=== PATIENT | male | born 1945 | race Caucasian/White ===

== ENCOUNTER 2018-12-23 08:44 | Inpatient (IN) ==
--- NOTE | 2018-12-23 09:25 | Diag Imaging Result Doc PS360 ---
CHEST-1 VIEW - 12/23/2018 INDICATION: fall COMPARISON: None FINDINGS: Lung volumes are moderately low. The lungs are clear. Heart size is normal. No pneumothorax or pleural effusion. IMPRESSION: No acute disease. Electronically signed by Doug Kauffman 12/23/2018 9:23 AM
[2018-12-23 09:33] LABS: BASO# 0.03 X1000 (0.0-0.2); BASO% 0.3 % (0.0-0.8); EOS# 0.14 X1000 (0.0-0.7); EOS% 1.4 % (0.0-10.0); HEMATOCRIT 29.7 % (42.0-52.0); HEMOGLOBIN 10.4 g/dL (14.0-18.0); IMM GRAN# 0.02 X1000 (0.0-0.04); IMM GRAN% 0.2 % (0.0-0.5); LYMPH# 1.32 X1000 (1.2-3.4); LYMPH% 13.5 % (20.5-51.1); MCH 30.7 PG (27-31); MCV 87.6 FL (81-99); MONO# 1.27 X1000 (0.11-0.59); MONO% 12.9 % (1.7-9.3); MPV 9.8 FL (7.4-10.4); NEUT# 7.03 X1000 (1.4-6.5); NEUT% 71.7 % (42.2-75.2); PLT 145 X1000 (130-400); RBC 3.39 XMIL (4.7-6.1); RDW 14.9 % (11.5-14.5); WBC 9.81 X1000 (4.8-10.8)
--- NOTE | 2018-12-23 09:34 | PROVIDER DOCUMENTATION ---
HPI-General Adult - General Chief Complaint: Weakness Stated Complaint: ams Time Seen by Provider: 12/23/18 08:59 Source: patient Allergies/Adverse Reactions: Patient Allergies Allergy/AdvReac Type Severity Reaction Status Date / Time salmon oil Allergy ANAPHYLAXIS Verified 12/23/18 10:14 Home Medications: Home Medication List Medication Instructions Recorded Confirmed Last Taken Type Alprazolam 1 mg PO BID 12/23/18 12/23/18 Unknown History Amlodipine Besylate 10 mg PO DAILY 12/23/18 12/23/18 Unknown History Cholecalciferol (Vit D3) [Vitamin 1,000 unit PO DAILY 12/23/18 12/23/18 Unknown History D] Citalopram Hydrobromide 40 mg PO DAILY 12/23/18 12/23/18 Unknown History [Citalopram HBr] Dicyclomine HCl 10 mg PO DAILY 12/23/18 12/23/18 Unknown History Hydroxyzine Pamoate 50 mg PO DAILY 12/23/18 12/23/18 Unknown History Montelukast [Singulair] 10 mg PO DAILY 12/23/18 12/23/18 Unknown History Omeprazole 40 mg PO DAILY 12/23/18 12/23/18 Unknown History - History of Present Illness -Gen Adult Nature of Presenting Problems: 73 y/o WM brought to the ER for severe weakness and fall yesterday. His relates that his weakness started yesterday and he has fallen once yesterday and once at 1 am today. Pt c/o B knee pain and rt hip tenderness. states that pt started having speech difficulty yesterday. Pt denies any specific localized weakness and his comments that he was recently was treated for UTI that may not have resolved. Location of Pain/Injury: reports: lower extremity (Rt hip and B knee tenderness) Pain Radiation: reports: no radiation Quality of Pain: reports: aching Severity: reports: mild Onset/Duration: reports: 24 hours ago Timing: reports: still present Context/Activities at Onset: reports: light activity Modifying Factors: improves with: movement Associated Symptoms: reports: weakness, trouble walking. denies: back/neck pain, chest pain, seizure, shortness of breath Similar Symptoms Previously?: No Recently seen or treated by another doctor?: No - Sickle Cell Pain Related Context Sickle Cell Pain Location: denies: none, head, face, mouth, neck, chest, upper extremity, hand(s), abdomen, back, pelvis, genitalia, lower extremity, feet, upper body, lower body, generalized, other Review of Systems - Adult - REVIEW OF SYSTEMS - ADULT Constitutional: reports: see HPI, other (generalized weakness) Eyes: reports: no symptoms reported, see HPI Ears, Nose, Mouth & Throat: reports: see HPI, other (difficulty with speech and not drinking well) Cardiovascular: reports: no symptoms reported, see HPI Respiratory: reports: no symptoms reported, see HPI Gastrointestinal: reports: see HPI, abdominal pain (rt sided abdo pain) Genitourinary: reports: no symptoms reported, see HPI Musculoskeletal: reports: see HPI, joint pain (Rt hip pain and B knee pain) Integumentary: reports: no symptoms reported, see HPI Neurological: reports: no symptoms reported, see HPI Psychiatric: reports: no symptoms reported, see HPI Endocrine: reports: no symptoms reported, see HPI Hematologic/Lymphatic: reports: no symptoms reported, see HPI Allergic/Immunologic: reports: no symptoms reported, see HPI All Other Systems: Reviewed and Negative Past History - Adult - PAST MEDICAL HISTORY-ADULT Review of Records: reports: Nursing Assessment Review, Medications Reviewed, Social history reviewed & non-contributory. Physical Exam-General - PHYSICAL EXAM-ADULT Initial Vital Signs Reviewed: Yes - CONSTITUTIONAL General Appearance: no apparent distress, slow to respond - EYES Eyes: PERRL/EOMI - HEAD, EARS, NOSE, MOUTH & THROAT HENMT: normocephalic/atraumatic, other (Dry MM) - NECK Neck: non-tender, full range of motion, supple, normal inspection - RESPIRATORY Respiratory: chest non-tender, lungs clear, normal breath sounds, no pleuratic chest pain, no respiratory distress, no accessory muscle use - CARDIOVASCULAR Cardiovascular: normal peripheral pulses, regular rate, rhythm, no edema, no gallop, no JVD, no murmur - GASTROINTESTINAL (ABDOMEN) Abdominal Exam: normal bowel sounds, soft, no organomegaly, no pulsatile mass, guarding, tenderness - LYMPHATIC Lymphatic: no adenopathy - MUSCULOSKELETAL Back Exam: normal inspection, no CVA tenderness, no vertebral tenderness Extremity: no pedal edema, no calf tenderness, normal capillary refill, tenderne ss (rt hip tenderness and B knee tenderness that is greater on Lt side. N/V appears intact. generalized leg weakness B.) Peripheral Pulses: radial (R): 4+, radial (L): 4+, dorsalis-pedis (R): 4+, dorsalis-pedis (L): 4+ - SKIN Integumentary: normal color, normal turgor - NEUROLOGIC Neurologic: tag stringer II-XII nml as tested, grossly normal, motor weakness (generalized to B legs) - PSYCHIATRIC Psych/Mental Status: normal mood/affect, normal thought content, normal thought process Progress - PLAN OF CARE/RESULTS Progress/Plan/Lab Results: Vital Signs - 8 hr 12/23/18 08:51 Temperature 98.3 F Pulse Rate 93 H Respiratory Rate 18 Blood Pressure 119/65 O2 Sat by Pulse Oximetry 99 Orders Category Date Time Status Nursing- Obtain EKG ONCE Care 12/23/18 08:57 Active CHEST-1 VIEW [RAD] Stat Exams 12/23/18 08:[address] ABD/PELVIS W/IV CONT ONLY [CT] Stat Exams 12/23/18 09:[address] HEAD/C-SPINE W/O CONTRAST [CT] Stat Exams 12/23/18 08:57 Ordered KNEE 3 VIEWS LEFT [RAD] Stat Exams 12/23/18 09:26 Ordered KNEE 3 VIEWS RIGHT [RAD] Stat Exams 12/23/18 09:26 Ordered CBC WITH DIFF [HEME] Stat Lab 12/23/18 09:15 Results COMPREHENSIVE METABOLIC PANEL [CHEM] Stat Lab 12/23/18 09:15 Received UA NIMS W/REFLEX CULT [URINALYSIS] Stat Lab 12/23/18 08:57 Uncollected URINE DRUG SCREEN Stat Lab 12/23/18 08:57 Uncollected EKG [EKG] Stat Ther 12/23/18 08:57 Ordered Result Diagrams: 12/23/18 09:15 12/23/18 09:15 - CONSULTS/PCP/HOSPITALIST Notification #1 *Consult/PCP/Hospitalist*: [place] [employer] for Hospitalist Time Discussed: 12:23 Consult Disposition: Will see in ED, Admit Departure - Departure Date of Disposition Decision: 12/23/18 Time of Disposition Decision: 12:23 DIAGNOSIS: ARF (acute renal failure), Weakness, UTI (urinary tract infection), Anemia, Hyponatremia Disposition: ADMITTED INPATIENT 09 Certified Medical Emergency: Emergent Condition: Fair Referrals and Follow-Ups: Francoise Silverio, NOEMI [Primary Care Provider] - - Critical Care Note This patient required my direct & personal management of CC.: No Attestation - Physician/ PARISH Attestation Patient care was provided by Advanced Practice Provider:: No The physician spent face to face time with patient:: Yes Advanced Practice Provider documentation review:: Supervising physician onsite and consulted in the evaluation and care of this patient. The physician did have a face to face encounter with the patient.
[2018-12-23 09:50] LABS: ALBUMIN 3.6 g/dL (3.5-5.0); CALCIUM 9.6 mg/dL (8.8-10.2); CREATININE 5.4 mg/dL (0.7-1.2); POTASSIUM 4.7 mmol/L (3.5-5.1); TOTAL BILIRUBIN 0.24 mg/dL (0.20-1.00); TOTAL PROTEIN 7.1 g/dL (6.3-8.3)
[2018-12-23 09:58] LABS: URINE SOURCE CLEAN CATCH
[2018-12-23 10:05] LABS: BILIRUBIN URINE NEGATIVE (NEGATIVE); BLOOD URINE MODERATE (NEGATIVE); COLOR YELLOW; GLUCOSE URINE NEGATIVE (NEGATIVE); KETONE URINE TRACE mg/dL (NEGATIVE); LEUKOCYTES URINE LARGE (NEGATIVE); NITRITE URINE NEGATIVE (NEGATIVE); PH URINE 6.5; PROTEIN URINE 70 mg/dL (NEGATIVE); SP GRAVITY URINE 1.011; TURBIDITY URINE HAZY (CLEAR); UROBILINOGEN URINE NORMAL (NORMAL)
--- NOTE | 2018-12-23 10:05 | Diag Imaging Result Doc PS360 ---
CT HEAD/C-SPINE W/O CONTRAST - 12/23/2018 INDICATION: fall COMPARISON: None FINDINGS: Head CT: There is advanced diffuse cerebral atrophy. There is mild periventricular white matter chronic microvascular disease. No intracranial mass or hemorrhage. The skull is intact. The sinuses are clear. Cervical spine: Alignment is anatomic. No fracture or subluxation. There is advanced degeneration at C5-6 and C6-7. Other disc spaces are well preserved. No severe central canal stenosis. Soft tissues are clear. IMPRESSION: No acute injury. This exam was performed using automated exposure control, adjustment of mA or kV according to patient size, and/or use of iterative reconstruction technique Electronically signed by Doug Kauffman 12/23/2018 10:03 AM
[2018-12-23 10:07] LABS: UR EPITHELIAL CELLS <10 /HPF (<10); URINE BACTERIA 2+ /HPF; URINE WBC TNTC /HPF (<10)
--- NOTE | 2018-12-23 10:13 | EKG Report ---
Test Performed on : 12/23/2018 09:00:05 AM Test Reason : fall Blood Pressure : / mmHG Vent. Rate : 088 BPM Atrial Rate : 088 BPM P-R Int : 142 ms QRS Dur : 108 ms QT Int : 386 ms P-R-T Axes : 059 -18 051 degrees QTc Int : 467 ms Normal sinus rhythm. Normal ECG No previous ECGs available Unconfirmed Result
[2018-12-23] MEDS ORDERED: NS 1,000 ML IV ONE (10:16)
--- NOTE | 2018-12-23 10:16 | Diag Imaging Result Doc PS360 ---
CT ABDOMEN/PELVIS W/O CONTRAST - 12/23/2018 INDICATION: abdo pain, B hip pain S/P fall COMPARISON: None FINDINGS: There is some linear atelectasis in the lung bases. No infiltrates. Heart size is normal with no pericardial effusion. No radiodense renal stones. No hydronephrosis or hydroureter. There is some nonspecific perinephric stranding bilaterally. Otherwise all abdominal organs are normal. No bowel obstruction or inflammation. Normal appendix. No constipation. There is severe wall thickening of the urinary bladder with some surrounding inflammation suggesting cystitis. Prostate and rectum are normal. There is geographic hyperdensity of the femoral head epiphyses bilaterally compatible with chronic avascular necrosis. There is mild bilateral hip osteoarthritis. Mild degeneration throughout the spine. No fracture or dislocation. IMPRESSION: 1. Severe cystitis. 2. 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 No acute injuries. This exam was performed using automated exposure control, adjustment of mA or kV according to patient size, and/or use of iterative reconstruction technique Electronically signed by Doug Kauffman 12/23/2018 10:14 AM
[2018-12-23 10:20] LABS: UR AMPHETAMINES MT NONE DETECTED (NONE DETECT); UR BARBITUATES MT NONE DETECTED (NONE DETECT); UR BENZODIAZ MT PRESUMPTIVE POS (NONE DETECT); UR CANNABIS MEDTOX NONE DETECTED (NONE DETECT); UR COCAINE MT NONE DETECTED (NONE DETECT); UR METHADONE MEDTOX NONE DETECTED (NONE DETECT); UR OPIATES MT NONE DETECTED (NONE DETECT); UR OXYCODONE MEDTOX NONE DETECTED (NONE DETECT); UR PCP MEDTOX NONE DETECTED (NONE DETECT)
--- NOTE | 2018-12-23 10:48 | Diag Imaging Result Doc PS360 ---
KNEE 3 VIEWS LEFT - 12/23/2018 INDICATION: knee pain TECHNIQUE: Three views COMPARISON: None FINDINGS: There is significant chondrocalcinosis of both the menisci and the articular cartilage surfaces. No fracture or subluxation. No significant joint effusion. Mild peripheral vascular disease of the femoral artery. IMPRESSION: Significant chondrocalcinosis. This is compatible with osteochondromatosis, osteoarthritis, gout, or pseudogout. Mild peripheral vascular disease. Electronically signed by Doug Kauffman 12/23/2018 10:46 AM
--- NOTE | 2018-12-23 10:49 | Diag Imaging Result Doc PS360 ---
KNEE 3 VIEWS RIGHT - 12/23/2018 INDICATION: knee pain TECHNIQUE: Three views COMPARISON: None FINDINGS: There is extensive chondrocalcinosis of both the menisci as well as the articular cartilage diffusely. Otherwise joint spaces are preserved. No significant joint effusion. No fracture or subluxation. Advanced vascular disease of the femoral and popliteal arteries. IMPRESSION: 1. Significant chondrocalcinosis which is likely degenerative. Osteochondromatosis, gout, and pseudogout are also possibilities. 2. Peripheral vascular disease. Electronically signed by Doug Kauffman 12/23/2018 10:46 AM
[2018-12-23] MEDS ORDERED: ZOFRAN IV PRN (12:04)
[2018-12-23] MEDS ORDERED: NS 1,000 ML IV SCH (12:15)
--- NOTE | 2018-12-23 12:24 | ED EKG INTERP ---
This chart was entered by Nieves Chávez Scribe, acting as scribe for Eric Akbar MD. EKG Interpretation - EKG Time of EKG reading by physician:: 09:00 EKG Read and Signed by:: Eric Akbar EKG Interpretation (*Must complete 3 of following elements*): Normal Rate: 88 Rhythm: normal sinus rhythm [place]: normal QRS: normal AR Interval: normal ST Wave: normal Comments: normal ECG Attestation - Physician/ PARIHS Attestation The physician spent face to face time with patient:: Yes Advanced Practice Provider documentation review:: Supervising physician onsite and consulted in the evaluation and care of this patient. The physician did have a face to face encounter with the patient. This chart was documented by the indicated scribe, (Nieves Chávez Scribe) and accurately reflects the services I performed and decisions made by me, Eric Akbar MD, as attested by the provider's signature.
[2018-12-23 12:44] LABS: UR CREAT RANDOM 51.9 mg/dL (14-26); UR PROT RANDOM 68.1 mg/dL
[2018-12-23] MEDS: ROCEPHIN 1 GM in NS 50 ML IV SCH (14:01)
[2018-12-23] MEDS ORDERED: MORPHINE IV PRN (14:11)
[2018-12-23] MEDS ORDERED: XANAX PO ONE (15:15)
[2018-12-23 15:39] LABS: TSH 1.67 uIUmL (0.27-4.20)
[2018-12-23 17:01] LABS: ALBUMIN 3.8 g/dL (3.5-5.0); CALCIUM 9.3 mg/dL (8.8-10.2); CREATININE 5.4 mg/dL (0.7-1.2); PHOSPHORUS 3.3 mg/dL (2.7-4.5); POTASSIUM 4.2 mmol/L (3.5-5.1)
[2018-12-23] MEDS: NS 1,000 ML IV SCH (18:09)
--- NOTE | 2018-12-23 20:11 | HISTORY AND PHYSICAL ---
CHIEF COMPLAINT: Altered mental status, weakness and falls. HISTORY OF PRESENT ILLNESS: This is a 73-year-old gentleman with a history of COPD, gastroesophageal reflux disease, hypertension, who presents to the emergency room with his after sustaining multiple falls over the last 2 to 3 days. The stated that the patient was treated for a urinary tract infection about 3 weeks ago through the [facility]. She stated at this time he had a elevated potassium and that she got the impression that the [facility] physician was concerned about this level, although they never had him return or have any followup blood draws. He was also treated for urinary tract infection with Cipro 500 mg b.i.d., which he is still taking. She states that he has had some generalized weakness over the last few days but over the last 24 hours he has fallen twice complaining of right hip tenderness and bilateral knee pain after the falls. She noticed yesterday that his mouth was becoming dry and was having difficulty understanding his speech. She stated that he ate well Wednesday but he has had very little liquid or food intake since eating during the day Wednesday. PAST MEDICAL HISTORY: 1. COPD. 2. Gastroesophageal reflux disease. 3. Hypertension. 4. Obstructive sleep apnea. PAST SURGICAL HISTORY: Denies. SOCIAL HISTORY: Denies any alcohol, tobacco or illicit drug use. ALLERGIES: Amberg oil which causes anaphylaxis. HOME MEDICATIONS: A list will be obtained by the nursing staff and once verified will be restarted as appropriate. REVIEW OF SYSTEMS: Is unable to obtain from the patient at present. The states that he has complained of just generalized weakness. He has had very little appetite. He has fallen multiple times. He complains of knee and right hip pain. PHYSICAL EXAMINATION: GENERAL: This is a 73-year-old gentleman who is lying on the stretcher in the emergency room in no distress. VITAL SIGNS: Blood pressure is 119/65 with heart rate of 90, respirations 18, temperature 98.3 degrees, room air saturations 99%. HEENT: Head is normocephalic, atraumatic. Mucous membranes are dry. NECK: Supple with trachea midline. No JVD. CARDIOVASCULAR: Regular rate and rhythm. S1 and S2 appreciated. No murmur. He has no lower extremity edema. Calves are nontender with peripheral pulses palpable x4 extremities. PULMONARY: Breath sounds are clear with no increased work of breathing noted. Chest rises and falls symmetric respiration. GASTROINTESTINAL: Abdomen soft, nontender, nondistended. Bowel sounds in all 4 quadrants. GENITOURINARY: He has no CVA or suprapubic tenderness. NEUROLOGIC: He is alert, he follows commands, when you can understand his speech he does answer appropriately. LABS: WBC is 9.8 with hemoglobin 10.4, hematocrit 29.7, and platelets 145,000. Sodium is 130, potassium 4.7, BUN 74, creatinine 5.4 with a glucose of 86. Urinalysis reveals moderate blood with large amount of leukocytes, too numerous to count white blood cells, 10 to 20 red blood cells, 2+ bacteria. Urine drug screen is presumptive positive for benzodiazepines. Urine culture is pending. Chest x-ray reveals no acute disease. CT of the head and C-spine reveals head there is advanced diffuse cerebral atrophy, mild periventricular white matter, chronic microvascular disease. No intracranial mass or hemorrhage. Skull is intact. Sinuses are clear. C-spine alignment is anatomic. No fracture or subluxation. There is advanced degeneration of C5-C6 and C6-7. Other disk spaces are well preserved. No severe central canal stenosis. Soft tissues are clear. No acute injury. CT of the abdomen and pelvis reveals severe cystitis, old avascular necrosis of femoral heads bilateral. No acute injuries. Bilateral knee x-rays revealed significant chondrocalcinosis compatible with osteochondromatosis, osteoarthritis, gout or pseudogout with peripheral vascular disease. ASSESSMENT AND PLAN: 1. Acute renal failure. obtain urine electrolytes. IV hydration, hold any renal toxic medications and renal dose any needed medications continue IV hydration. recheck a renal profile at 4 o'clock and then daily. 2. Hyponatremia. labs for workup. Continue with saline supplementation. Hold any appropriate medications and trend his labs. 3. Generalized weakness. This very well could be secondary to dehydration and little oral intake as well as urinary tract infection. He will be placed on fall precautions. We will consult Physical Therapy. 4. Urinary tract infection. Urine culture is pending. Rocephin daily with further antibiotics culture driven. 5. Anemia. The states this is chronic. We will trend labs daily. 6. Chronic benzodiazepine use. We will decrease his home dosw deep vein thrombosis prophylaxis use SCDs as he has had recent falls gastrointestinal prophylaxis PPI. Plan was discussed with Dr. Guaman. Further treatments pending hospital course. Dictated by EMMA Chau for Chris Vanessa MD Addendum: Patient seen and examined by myself. Agree with EMMA note. It reflects my assessment and plan. Patient is being admitted to hospital for AMS and UTI. It looks like that condition is recurrent. Will start Rocephin while we wait for results of urine culture. Will consult PT. Will monitor patient closely. cc: EMMA Chau MD [facility]
[2018-12-23] MEDS: XANAX PO PRN (20:45)
[2018-12-23] MEDS ORDERED: XANAX PO SCH (21:00)
[2018-12-24] MEDS: NS 1,000 ML IV SCH ×4 (02:52→20:49)
[2018-12-24 07:09] LABS: HEMATOCRIT 27.9 % (42.0-52.0); HEMOGLOBIN 9.7 g/dL (14.0-18.0); MCH 31.4 PG (27-31); MCHC 34.8 g/dL (33-37); MCV 90.3 FL (81-99); MPV 9.5 FL (7.4-10.4); RBC 3.09 XMIL (4.7-6.1); RDW 15.2 % (11.5-14.5); WBC 9.84 X1000 (4.8-10.8)
[2018-12-24 07:48] LABS: ALBUMIN 3.2 g/dL (3.5-5.0); CALCIUM 8.6 mg/dL (8.8-10.2); CREATININE 5.2 mg/dL (0.7-1.2); PHOSPHORUS 5.1 mg/dL (2.7-4.5); POTASSIUM 4.2 mmol/L (3.5-5.1)
[2018-12-24] MEDS ORDERED: ATARAX PO SCH ×2 (09:00)
--- NOTE | 2018-12-24 09:02 | Diag Imaging Result Doc PS360 ---
US RENAL 2 (RETROPER) COMPLETE - 12/24/2018 INDICATION: decreased renal function TECHNIQUE: COMPARISON: CT from 12/23/2018 FINDINGS: There is a tiny left renal cortical cyst measuring 1.4 cm. Otherwise the kidneys are normal in size and echotexture. The right kidney measures 11.9 x 5.6 x 5.6 cm. The left kidney measures 13.6 x 5.3 x 7 cm. Cortex measures 12 mm bilaterally. No hydronephrosis. Bowie catheter is in the urinary bladder. The bladder is collapsed. IMPRESSION: Negative exam. Electronically signed by Doug Kauffman 12/24/2018 9:00 AM
[2018-12-24] MEDS: XANAX PO PRN ×2 (09:17→18:16)
[2018-12-24] MEDS ORDERED: TYLENOL PO PRN (14:07)
[2018-12-24] MEDS: ROCEPHIN 1 GM in NS 50 ML IV SCH (14:33)
[2018-12-24] MEDS: LOVENOX SUBQ SCH (14:39)
--- NOTE | 2018-12-24 16:15 | PROGRESS NOTE ---
DATE: 12/24/2018 INTERVAL HISTORY: No acute events overnight. He had about 1.5 L of urine output over last 24 hours. He is more coherent as compared to yesterday as per at bedside. He denies any chest pain, shortness of breath or cough. He is complaining of leg pain. He ate his breakfast and lunch today. He denies known history of kidney disease or kidney stones. He denies noticing any blood in the urine, though does tell me that he has had trouble peeing since last few days. OBJECTIVE: Vital signs: Currently, temperature 98.4, pulse 85, respiratory rate 22, blood pressure 110/54, saturating 97% on room air. General: Does not appear in any acute distress. HEENT: Oral cavity is dry. No pallor, cyanosis, clubbing, or icterus. Lungs: Air entry bilaterally equal. No wheeze, rhonchi, or crackles. Heart: S1 and S2 normal. No murmur or gallop. Abdomen: Soft, nontender. Active bowel sounds. Extremities: No lower extremity edema. Neurologic: He is drowsy but arousable. He answers most questions appropriately. However, he does have tangentiality in his thought process. He is able to raise both upper extremities above ground level without help. He is barely able to lift both lower extremities. His sensations are intact bilaterally. Knee jerks are 2+ bilaterally. Ankle jerks were difficult to obtain considering his body habitus and his bilateral knee pain. His Babinski responses were inconsistent, and he was ticklish. LABS: Suggestive of normocytic anemia, improving hyponatremia and resolution of hypokalemia. He continues to have elevated anion gap with low bicarbonate. He continues to have hyperphosphatemia and hypocalcemia. MICROBIOLOGY: Urine culture growing gram-negative fahad. IMAGING: Renal ultrasound performed today did not detect any hydronephrosis. Abdomen and pelvis CT yesterday had severe cystitis and old avascular necrosis of femoral heads bilaterally. ASSESSMENT AND PLAN: 1. Acute encephalopathy, likely in the setting of acute renal failure, now improving after intravenous fluid resuscitation, and his mental status has improved as per the at bedside. CT scan of head was unremarkable. I will continue to monitor. 2.Presumed Acute Renal failure. Records from [facility] are pending to confirm baseline. He has been taking omeprazole for many years, which can cause chronic kidney disease, and he had recently completed a course of ciprofloxacin for urinary tract infection. Fractional excretion of sodium is not typical for prerenal failure. I will continue to monitor input and output with Bowie catheter. I will consider bicarbonate for his elevated anion gap and low bicarb, and we will follow up ABG. 3. Generalized weakness, multiple falls and bilateral knee pain and hip pain on presentation. It is possible that his uremia was causing his altered mental status and weakness. I am holding his home hydroxyzine which could contribute to drowsiness and will give alprazolam only as needed to prevent benzodiazepine withdrawal. 4. Acute cystitis. Continue intravenous ceftriaxone. Follow up final urine culture results. 5. His anemia is currently stable. He does not have signs of benzodiazepine withdrawal. I will start him on chemical DVT prophylaxis. DISPOSITION: I will continue to monitor the patient inside the hospital. Plan of care was discussed with the patient and his at bedside. Their questions have been answered. cc: Flavio Navarrete MD MTDD
[2018-12-24 17:54] LABS: ALLEN TEST YES; BLOOD TYPE ARTERIAL; HCO3-(ACT) 18.7 mmoll (20.0-26.0); METHB 1.2 % (0.0-1.5); O2(CT) 13.8 mL/dL (15.0-23.0); O2HB 94.7 % (95.0-99.0); PCO2(98.6) 29 mmHg (35-45); PO2(98.6) 78 mmHg (60-100); SAMPLE BLOOD; SAO2 97.8 % (95.0-100.0); THB 10.3 g/dL (11.5-17.4); pH(98.6) 7.36 (7.35-7.45)
[2018-12-24 17:55] LABS: MODALITY ROOM AIR
[2018-12-25] MEDS: NS 1,000 ML IV SCH ×2 (06:26→20:09)
[2018-12-25 06:53] LABS: HEMATOCRIT 27.8 % (42.0-52.0); HEMOGLOBIN 9.5 g/dL (14.0-18.0); MCH 30.4 PG (27-31); MCHC 34.2 g/dL (33-37); MCV 88.8 FL (81-99); MPV 9.3 FL (7.4-10.4); RBC 3.13 XMIL (4.7-6.1); RDW 14.9 % (11.5-14.5); WBC 6.79 X1000 (4.8-10.8)
[2018-12-25 07:36] LABS: ALBUMIN 3.1 g/dL (3.5-5.0); CALCIUM 8.6 mg/dL (8.8-10.2); CREATININE 4.9 mg/dL (0.7-1.2); PHOSPHORUS 4.9 mg/dL (2.7-4.5); POTASSIUM 4.2 mmol/L (3.5-5.1)
[2018-12-25] MEDS ORDERED: PRILOSEC PO SCH (09:00)
[2018-12-25] MEDS: KEFZOL 1 GM/D5W 1 GM/50 ML IVPB IV SCH (10:50)
[2018-12-25] MEDS: SINGULAIR PO SCH (10:51)
[2018-12-25] MEDS: VITAMIN D PO SCH (10:51)
[2018-12-25 12:38] LABS: HEMOGLOBIN A1C 4.3 % (4.8-6.0)
--- NOTE | 2018-12-25 13:26 | PROGRESS NOTE ---
DATE: 12/25/2018 INTERVAL HISTORY: No acute events overnight. The patient's states that he was able to eat better. He does not have any more episodes of confusion. We discussed about Xanax contributing to confusion and giving him lower dose as required for now. We also discussed about getting a kidney doctor onboard. She states that the patient has been having multiple falls over the last few months and has not been worked up outpatient since they had issues seeing a [place] doctor. I also discussed with them about pending [place] records. SUBJECTIVE: Patient is sleepy at the moment. Denies any complaints. On waking up, he starts mumbling. VITALS: Temperature 98.3 degrees, pulse 87, respiratory rate 18, blood pressure 120/65, saturating 98% on 2 to 3 L nasal cannula. PHYSICAL EXAMINATION: General: Obese, not in any acute distress. HEENT: Oral cavity is moist. No pallor, cyanosis, clubbing, or icterus. Lungs: Air entry bilaterally equal. No wheeze, rhonchi, or crackles. Cardiovascular: S1, S2 normal. No murmur, rub, or gallop. Abdomen: Obese, soft, nontender. Active bowel sounds. Extremities: No lower extremity edema. Neurologic: He is sleeping but arousable. He withdraws all extremities to painful stimuli. He is not able to lift bilateral lower extremities above ground level because of the knee pain, and he is not able to bend both of his knees which are excruciatingly tender because of previous fall. Input and output: Input and output suggest he had 3.3 L of urine yesterday. LABS: Suggestive of normocytic anemia, normal platelet count, improving hyponatremia and hypochloremia, low bicarbonate, improving BUN and creatinine. Microbiology with urine culture growing Escherichia coli which is sensitive to cefazolin. ASSESSMENT AND PLAN: 1. Acute encephalopathy on presentation, likely due to renal failure and uremia, now significantly improving after intravenous fluid resuscitation. CT scan did have chronic white matter changes, and I am wondering if he has early dementia. I will get MRI of the brain to rule out any CVA. 2. Presumed acute renal failure since he does not have prior history of renal disease as per the family. Records from the [place] hospital are pending. Considering his very large urine output, he may not need urgent dialysis, though his bicarbonate is low. He is not acidotic on ABG. Potential offenders include he may be having acute tubular necrosis and currently in diuretic phase of it. He was listed to be taking omeprazole chronically for GERD and had received ciprofloxacin for UTI at [facility]. I will continue intravenous fluids, Bowie catheter for close input and output monitoring, and we will consult Nephrology to see if he would need a kidney biopsy in the future considering his hematuria. 3. Generalized weakness, multiple falls, bilateral knee pain on presentation. Follow up hemoglobin A1c, RPR to rule out peripheral neuropathy. MRI of the brain to rule out cerebellar stroke. I am holding his hydroxyzine, and we will give him decreased dose of alprazolam. I will also follow up with vitamin D. Differential includes orthostatic hypotension, general debility, peripheral neuropathy versus others. 4. Acute Escherichia coli cystitis. Continue intravenous cefazolin and change it to levofloxacin or Keflex at the time of discharge. 5. Continue enoxaparin for DVT prophylaxis. 6. Disposition. I will continue to monitor the patient inside the hospital as I await improvement in kidney function. Plan of care discussed with the patient and his at bedside. Their questions have been answered. cc: Flavio Navarrete MD
[2018-12-25] MEDS: LOVENOX SUBQ SCH (15:34)
[2018-12-26] MEDS: KEFZOL 1 GM/D5W 1 GM/50 ML IVPB IV SCH ×4 (02:30→18:24)
[2018-12-26] MEDS: NS 1,000 ML IV SCH ×2 (03:19→18:24)
[2018-12-26 06:40] LABS: HEMATOCRIT 28.2 % (42.0-52.0); HEMOGLOBIN 9.6 g/dL (14.0-18.0); MCH 31.1 PG (27-31); MCV 91.3 FL (81-99); MPV 9.5 FL (7.4-10.4); RBC 3.09 XMIL (4.7-6.1); RDW 14.9 % (11.5-14.5); WBC 5.99 X1000 (4.8-10.8)
[2018-12-26 08:05] LABS: ALBUMIN 3.2 g/dL (3.5-5.0); CALCIUM 8.4 mg/dL (8.8-10.2); CREATININE 3.8 mg/dL (0.7-1.2); PHOSPHORUS 4.2 mg/dL (2.7-4.5); POTASSIUM 4.2 mmol/L (3.5-5.1)
[2018-12-26] MEDS: SINGULAIR PO SCH (09:23)
[2018-12-26] MEDS: VITAMIN D PO SCH (09:23)
--- NOTE | 2018-12-26 11:33 | Diag Imaging Result Doc PS360 ---
EXAM: MRI BRAIN W/O CONTRAST INDICATION: Evaluate for cerebellar stroke. COMPARISON: CT head dated 12/23/2018. No prior MRI brain is available for comparison. FINDINGS: There is no evidence of acute infarct. There is advanced diffuse brain atrophy. There is mild patchy T2/FLAIR hyperintensity in the periventricular and subcortical white matter suggesting mild microangiopathy. There is no discrete intracranial mass, mass effect, or intracranial hemorrhage. The surrounding soft tissues and bony structures are essentially unremarkable. IMPRESSION: Advanced diffuse brain atrophy and mild white matter microangiopathy. No definite acute intracranial pathology. Electronically signed by Matty Coleman 12/26/2018 11:30 AM
--- NOTE | 2018-12-26 14:13 | PROGRESS NOTE ---
DATE: 12/26/2018 INTERVAL HISTORY: His hemoglobin A1c, vitamin D, RPR, antinuclear antibody have been unremarkable. SUBJECTIVE: Patient denies any new complaints. He is feeling much better today. I had a discussion with patient and his about possible Parkinson disease considering his reported history of bradykinesia, resting tremor, multiple falls and I advised him to have outpatient evaluation. We discussed about awaiting brain MRI results as well as improving kidney function and need for future rehab. Patient denies any chest pain or shortness of breath, abdominal pain, nausea, vomiting. VITALS: Temperature 97.5 degrees, pulse 84, respiratory rate 14, blood pressure 138/72 saturating 100% 2 L nasal cannula. PHYSICAL EXAMINATION: Obese not in any acute distress. Oral cavity is moist. Air entry bilateral equal. No wheeze, rhonchi, mild inspiratory crackles infrascapular region. S1, S2 normal. No murmur, rub or gallop. Abdomen is soft, nontender. No lower extremity edema. He is alert, he is oriented, he is talking appropriately. He is coherent. He is able to lift both upper and lower extremity above ground level. LABS: Suggestive of normal hemoglobin, normal platelet count. He does have improvement in BUN, creatinine which improved from 5.4 on admission to 3.8. His BUN also improved from 74 to 48. Microbiology, no additional data. Brain MRI suggested advanced diffuse brain atrophy and mild white matter microangiopathy. No definitive acute intracranial pathology. ASSESSMENT AND PLAN: 1. Acute encephalopathy due to renal failure and uremia now significantly improving after intravenous fluid resuscitation and improvement in kidney function. Brain MRI suggests hanks matter atrophy. I advised outpatient Parkinson disease evaluation. 2. Presumed acute renal failure as outside reports are pending. He was taking proton pump inhibitor for a long time and had recently completed course of ciprofloxacin for urinary tract infection. Continue intravenous fluids with input and output monitoring, however with improvement in kidney function I will discontinue Bowie catheter. Follow up on Nephrology recommendation. 3. Generalized weakness, multiple falls, bilateral knee pain on presentation, orthostatic vitals are pending. His peripheral neuropathy workup including hemoglobin A1c, RPR, vitamin D, vitamin B12 and antinuclear antibody have been unremarkable. I will continue to hold hydroxyzine and will give alprazolam as needed for posttraumatic stress disorder. 4. Acute Escherichia coli cystitis, continue intravenous cefazolin. 5. Continue enoxaparin for DVT prophylaxis. 6. Disposition. I am awaiting improvement in kidney function. If this continues to improve my plan will be to discharge him eventually to rehab in next 24 hours or so. Plan of care discussed with both patient and his . Their questions have been answered. cc: Flavio Navarrete MD
[2018-12-26] MEDS: MIRALAX PO SCH ×2 (14:24→20:46)
[2018-12-26] MEDS: LOVENOX SUBQ SCH (14:24)
--- NOTE | 2018-12-26 15:27 | NEPHROLOGY CONSULTATION ---
DATE: 12/26/2018 REASON FOR ADMISSION: Altered mental status, weakness, falling. REASON FOR CONSULTATION: Elevated creatinine, hematuria, proteinuria, assist with management. CONSULTING PHYSICIAN: Dr. Navarrete. HISTORY OF PRESENT ILLNESS: This is a 73-year-old gentleman with a past medical history of hypertension, obstructive sleep apnea and COPD, who came to the emergency room after having multiple falls over the previous several days. The patient was currently treated with a urinary tract infection about 3 weeks prior. He was continued on ciprofloxacin 500 mg b.i.d. He was still taking this. In the emergency room he had an initial lab value of a WBC of 9.8, hemoglobin 10.7, sodium 130, potassium 4.2, CO2 14, BUN 74, creatinine of 5.4. Serum osmolality of 303. Urine at that time indicated positive proteinuria, trace ketones, moderate blood, large leukocytes and too numerous to count white blood cells. He had a random urine sodium of 57 and a random urine creatinine of 51.9 at that time. His urine random total protein was 68.1 mg/dL. RPR was nonreactive. Over the course of the hospitalization his creatinine has slowly improved. Yesterday's value was 4.9. Labs are pending this morning. Over the course of the last 24 hours he has made greater than 5 L of urine. His cumulative output is negative right at 5100 mL. The patient today states that he is anxious. He is frustrated that his Xanax dose has been decreased. He states that prior to all this happening, he had a tick bite about 3 months ago. He had a large area of redness on his abdomen. He had pulled the tick and had taken it to be seen. He was placed initially on antibiotics. He states he went down to the [facility] and they took him off antibiotics. They stated that it was not a deer tick. He has had no joint pain or other symptoms. He does not know the name of the antibiotic that he was on initially. Prior to coming in to the hospital, he had fallen twice. He does have some hip and knee pain that occurred after the fall. He states that immediately prior to coming into the hospital his appetite had decreased significantly, and even today, still does not have much of an appetite. In the hospital, he has undergone a renal ultrasound. His kidney sizes are 11.9 cm on the right and 13.6 on the left. This morning, the patient complains continued of nausea, vomiting, and abdominal pain. PAST MEDICAL HISTORY: As above. SURGICAL HISTORY: Denies. SOCIAL HISTORY: Denies ETOH, tobacco, or illicit drug use. Hearing: The patient is significantly hard of hearing. He stated he had hearing damage when he was in [place]. ALLERGIES: Gilberts. HOME MEDICATIONS: Listed as alprazolam, citalopram, vitamin D3, hydroxyzine, montelukast, amlodipine and omeprazole. REVIEW OF SYSTEMS: Again pertinent positives noted above. Primarily, today nausea, vomiting, and abdominal pain. PHYSICAL EXAMINATION: Vital Signs: Temperature 98.3 degrees, pulse 87, respiratory rate 24, blood pressure 136/66. Intake 1.6 L. Output 5.2 L. General: This is an elderly gentleman resting in bed. He is awake and alert. He does not appear in distress. HEENT: Normocephalic, atraumatic. JOEL. Conjunctivae are pink. His oral mucosa is dry. Neck: Supple. There is no JVD in a reclined position. Cardiovascular: Reveals regular rate and rhythm. He has no murmur or gallop. Pulmonary: He has equal excursion. He is clear bilaterally. He is currently on room air. Abdomen: Nondistended but tender to palpation diffusely. Examination of the abdomen does not reveal any reddened area or erythematous area. Genitourinary: He has a Bowie catheter. Extremities: No clubbing, cyanosis, or edema. He is moving all extremities. Integumentary: Skin is warm and dry. Neurologic: He is nonfocal aside from hard of hearing. LABORATORY DATA: Pending. Again his last set of labs were sodium of 135, potassium 4.2, CO2 of 15, BUN 76, creatinine 5.2, 5.4. Those were drawn on the . I have no labs since then. ASSESSMENT AND PLAN: 1. Presumed acute kidney injury. The patient denies any knowledge of renal disease prior. He states he does have a fatty liver. The patient has been recently treated for a urinary tract infection. Currently on ciprofloxacin. Unclear etiology. His renal sizes are normal although the patient denies diabetes and his blood sugars have been in target. He did have an RPR which was negative. Because of the hematuria and proteinuria, I will finish up a protein work. Unclear if the hematuria is related to his urinary tract infection or if he is having another process involved with his renal function. Further orders once we have some additional lab values back. 2. Metabolic acidosis. He has normal saline infusing right now. I will change this over to D5 with 3 ampules of bicarbonate. But, I will wait until his labs this morning are up before I change any orders. Dictated by EMMA Ron for Efraín Sauceda MD Face to face encounter, data reviewed, discussed with Tanya Burgos on 12/26/18. I agree with the above assessment and plan of care. cc: Efraín Sauceda MD [facility]
[2018-12-26] MEDS: XANAX PO PRN (20:51)
[2018-12-27] MEDS: NS 1,000 ML IV SCH (05:16)
[2018-12-27] MEDS ORDERED: KEFZOL 1 GM/D5W 1 GM/50 ML IVPB IV SCH (06:00)
[2018-12-27 06:29] LABS: HEMATOCRIT 29.3 % (42.0-52.0); MCH 31.2 PG (27-31); MCHC 34.1 g/dL (33-37); MCV 91.3 FL (81-99); MPV 9.3 FL (7.4-10.4); RBC 3.21 XMIL (4.7-6.1); RDW 14.6 % (11.5-14.5); WBC 6.22 X1000 (4.8-10.8)
[2018-12-27 06:35] LABS: ALBUMIN 3.5 g/dL (3.5-5.0); CALCIUM 9.4 mg/dL (8.8-10.2); CREATININE 2.9 mg/dL (0.7-1.2); PHOSPHORUS 3.4 mg/dL (2.7-4.5); POTASSIUM 4.5 mmol/L (3.5-5.1)
[2018-12-27] MEDS: SINGULAIR PO SCH (09:07)
[2018-12-27] MEDS: MIRALAX PO SCH (09:07)
[2018-12-27] MEDS: VITAMIN D PO SCH (09:07)
[2018-12-27] MEDS: XANAX PO PRN (09:07)
[2018-12-27 11:36] VITALS: BP 147/90
--- NOTE | 2018-12-27 11:44 | NEPHROLOGY PROGRESS NOTE ---
DATE: 12/27/2018 SUBJECTIVE: The patient is sitting up on the side of the bed. He is wishing to go home. OBJECTIVE: Vital Signs: Temperature 98.3 degrees, heart rate 86, respiratory rate 19, blood pressure 157/83. Intake 2.1 L, output 5.4 L. General: Elderly gentleman, sitting up on the side of the bed. He is awake and alert. He is in no acute distress. HEENT: Normocephalic, atraumatic. JOEL. Conjunctivae pink. Neck: Supple without JVD. Cardiovascular: Regular rate and rhythm. Pulmonary: He is clear bilaterally. Equal excursion. Abdomen: Soft. Positive bowel sounds. : He is voiding. Extremities: No clubbing, cyanosis, edema. He has been ambulatory in the [place]. Integumentary: Skin is pale, warm, and dry. LABORATORY DATA: WBC of 6.2, hemoglobin 10. Potassium 4.5, CO2 of 19, BUN 41, creatinine 2.9 (3.8, 4.9). ASSESSMENT AND PLAN: 1. Acute kidney injury. He has had progressive improvement over the last 3 days. His urine output is excellent. We have ordered a urine CHARMAINE. Those labs are pending. From a renal perspective, he can be discharged at the discretion of the primary, and follow up in our office within the next couple of weeks, and will go over his protein workup at that time and determine if we need to have further investigations into his proteinuria and hematuria. He does have a urinary tract infection noted, and again, this may be a cause of his hematuria. 2. Acidosis is improved. CO2 is 19 today. Dictated by EMMA Ron for Efraín Sauceda MD Face to face encounter, data reviewed, discussed with Tanya Burgos on 12/27/18. I agree with the above assessment and plan of care. cc: Efraín Sauceda MD [facility]
--- NOTE | 2018-12-27 15:32 | DISCHARGE SUMMARY ---
ADMISSION DATE: 12/23/2018 DISCHARGE DATE: 12/27/2018 DISCHARGE DISPOSITION: Home with home physical therapy. DISCHARGE CONDITION: Hemodynamically stable. He is alert and oriented x3, engaging in meaningful conversation. His kidney numbers are improving. He is making good amount of urine. He denies any chest pain or shortness of breath. He was able to walk in the hallway yesterday and family would prefer going home rather than rehab. DISCHARGE DIAGNOSES: 1. Acute kidney injury likely in the setting of acute pyelonephritis since he had severe acute cystitis on imaging, though there was no perinephric stranding. Other etiology investigation is pending outpatient. 2. Escherichia coli acute cystitis. 3. Multiple mechanical fall. 4. Acute metabolic encephalopathy due to renal failure and uremia. 5. Generalized weakness. OTHER DIAGNOSES: 1. History of chronic GERD. 2. Essential hypertension. 3. Anxiety and posttraumatic stress disorder. DISCHARGE INSTRUCTIONS: The patient has been has been provided BMP slip. He was advised to follow up with rn burn outpatient to discuss the pending blood test results including C3, C4 levels as well as anti glomerular basement membrane protein level. He was also advised to follow up with his regular doctor, discussed about prostatic enlargement and recurrent urinary tract infection. DISCHARGE MEDICATIONS: BMP slip to be done within 5 days. 1. Alprazolam 1 mg b.i.d. 2. Amlodipine 10 mg daily. 3. Citalopram 40 mg daily. 4. Dicyclomine 10 mg daily. 5. Omeprazole 40 mg daily. 6. Montelukast 10 mg daily. 7. Vitamin D 3000 units daily. 8. Keflex 250 mg 4 times a day 28 capsules. 9. MiraLAX 17 g b.i.d. VITALS: At the time of discharge, temperature 98.3 degrees, pulse 86, respiratory rate 19, blood pressure 150/80. He is saturating 100% on room air. His orthostatic vitals are unremarkable. PHYSICAL EXAMINATION: At the time of discharge. General: He is not in any acute distress. Oral cavity is moist. Lungs: Air entry bilaterally equal. No wheeze, rhonchi, crackles. Cardiovascular: S1, S2 normal. No murmur, rub, or gallop. Abdomen: Soft, nontender. Extremity: No lower extremity edema. He is alert, oriented x3. He was able to walk in the hallway. SIGNIFICANT LABS DURING HOSPITAL ADMISSION AND DISCHARGE: WBC 6.2, hemoglobin 10, platelet 272,000. His ESR is 29. His ABG had pH of 7.36. On admission, he had sodium of 130, which improved to 136 at the time of discharge, potassium 4.5. His carbon dioxide improved from 14 on admission to 19 at the time of discharge. His BUN improved from 74 to 41 and creatinine improved from 5.4 to 2.9. His VIRGILIO and RPR were negative. Microbiology urine culture growing Escherichia coli sensitive to cefazolin. IMAGING: During hospital admission, chest x-ray on admission had no acute disease. Head and cervical spine CT had no acute injury. Abdominal pelvis CT performed for abdominal pain had severe cystitis. 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 Knee x-ray had significant chondrocalcinosis compatible with osteochondral, osteoarthritis, gout, or pseudogout. Mild peripheral vascular disease. Renal ultrasound had essentially negative kidneys. Brain MRI had negative exam. There was advanced diffuse brain atrophy and mild white matter microangiopathy. No definitive acute intracranial pathology. HOSPITAL COURSE SUMMARY: Mr. Rockwell is a 73-year-old man with a past medical history of essential hypertension, documented history of COPD who came in the emergency room with his after having sustained multiple falls over the past 2 to 3 days. He was recently treated for urine infection about 3 weeks ago with fluoroquinolone at [facility]. At that time, he had issues with high potassium. However, last 2 to 3 days patient started complaining of generalized weakness and was experiencing multiple falls. He also appeared a little confused and that is why he was taken to the emergency room. In the emergency room, he was found to have acute kidney injury with GFR of 10, creatinine in excess of 6 and BUN in excess of 70, so the hospitalist team was consulted for further management. He was treated with intravenous fluids and was started on intravenous antibiotics for pyuria. Eventually, urine culture grew E. coli which was pansensitive with intravenous fluids. His kidney function started improving and his mentation also improved. CT scan and MRI of the brain were largely unremarkable except diffuse brain atrophy. It was thought that his acute kidney injury could be in the setting of acute cystitis which eventually had led to acute pyelonephritis, though there was no evidence of stranding on the imaging. Urine did have moderate degree of blood and some hematuria. However, with antibiotics and IV fluids he improved, though some of the blood tests such as C3-C4 level and glomerular basal membrane wear and serum protein electrophoresis were pending. Considering patient had clinically improved, it was decided to discharge him with outpatient BMP and Nephrology follow-up. He was also advised to follow up with his regular doctor to discuss about recurrent urine tract infection. TIME SPENT: More than 30 minutes spent discharging the patient. Plan of care discussed with the patient and his . All of their questions have been answered. cc: Flavio Navarrete MD [facility]
[2018-12-28 12:59] LABS: ANTINEUTROPHIL CYTOPLASMIC AB SEE COMMENTS
== END 2018-12-27 12:54 | disposition home health service (06) | DRG 682 ==
LOC: SUPCPDRO → ED 08:44 → 1N 13:51 → SUATTDRO 13:51
PROVIDERS: ATTEND Internal Medicine